=== PATIENT | female | born 1970 | race Caucasian/White ===

== ENCOUNTER → 2022-11-25 08:39 | Outpatient (BNVA) | payer OTHER, SELFPAY | PROVIDERS: PCP Registered Nurse; Visit Provider Registered Nurse | DX: R73.9 Hyperglycemia, unspecified (principal) | CPT/HCPCS: 83036 ==

== ENCOUNTER → 2022-11-30 11:26 | Outpatient (BNVA) | payer OTHER, SELFPAY | PROVIDERS: PCP Registered Nurse; Visit Provider Registered Nurse | DX: E11.9 Type 2 diabetes mellitus without complications (principal) | CPT/HCPCS: 81000 ==

== ENCOUNTER → 2023-02-18 15:21 | Outpatient (BNVA) | payer OTHER, SELFPAY | PROVIDERS: PCP Registered Nurse; Visit Provider Registered Nurse | DX: E11.9 Type 2 diabetes mellitus without complications (principal); I10 Essential (primary) hypertension | CPT/HCPCS: 80053; 80061; 83036 ==

== ENCOUNTER 2023-03-05 12:08 | Outpatient (CLI) | payer OTHER, SELFPAY ==
--- NOTE | 2023-03-05 | ECG_ITS ---
[facility] Test Date: 2023-03-05 Pat Name: Albania Contreras Department: Room: Gender: Female Receiving Lead: : 1970 Requested By: Lisbeth Garcia Order Number: [id number] Richardson MD: Vitaliy Crook M.D. Interpretive Statements NAME OF STUDY: TREADMILL STRESS TEST INDICATION: [family hx , ] EXERCISE DATA: The patient was exercised by Mario protocol. Baseline heart rate was 70 beats per minute. Baseline blood pressure was 136/90 millimeters of mercury. Target heart rate was 142 beats per minute. Maximum heart rate achieved was 156 which was 109% of the target heart rate. Maximum blood pressure was 191/62 millimeters of mercury. Total exercise time was 9 minutes and 38 seconds. Maximum METs achieved was 13.5. The reason for ending the test was completion of the protocol. The patient complained of shortness of breath during the stress test, which then resolved at the end of the test. ELECTROCARDIOGRAM: BASELINE: Showed sinus rhythm, normal axis, no significant ST-T changes at the baseline noted. [] EXERCISE: At the peak exercise level, [] No significant ST-T changes suggestive of ischemia noted. [] RECOVERY: During the recovery period, heart rate dropped appropriately. No significant ST-T changes in the recovery suggestive of ischemia noted. [] CONCLUSION: 1. Exercise capacity excellent 2. Heart rate response was appropriate. 3. Blood pressure response was appropriate. 4. Symptoms not suggestive of ischemia. 5. Stress test shows no evidence of ischemia Electronically Signed On 03-22-2023 11:42:06 CDT by Vitaliy Crook M.[id number]
[2023-03-05 13:07] VITALS: BMI 29.2
[2023-03-05 13:45] VITALS: BP 146/86; PULSE 92
== END 2023-03-05 12:09 | disposition home or self-care (01) ==
PROVIDERS: PCP Registered Nurse; Visit Provider Registered Nurse
DX: Z13.6 Encounter for screening for cardiovascular disorders (principal); Z82.49 Family history of ischemic heart disease and other diseases of the circulatory system
CPT/HCPCS: 93017

== ENCOUNTER 2023-04-06 14:00 | Outpatient (CLI) | payer OTHER, SELFPAY | END 2023-04-06 14:01 | disposition home or self-care (01) | LOC: SLEEP 04-07 13:59 | PROVIDERS: PCP Registered Nurse; Visit Provider Registered Nurse | DX: G47.33 Obstructive sleep apnea (adult) (pediatric) (principal) | CPT/HCPCS: G0399 ==

== ENCOUNTER → 2025-04-04 09:46 | Outpatient (BNVA) | payer OTHER, SELFPAY | PROVIDERS: PCP Registered Nurse; Visit Provider Registered Nurse | DX: E11.9 Type 2 diabetes mellitus without complications (principal) | CPT/HCPCS: 80053; 80061; 83036; 85025 ==